=== PATIENT | male | born 1965 | race African-American/Black ===

== ENCOUNTER 2019-12-03 05:21 | Emergency (ER) | payer MEDICAID ==
[~2019-12-03] VITALS: Ht 188 cm; Wt 103.0 kg
[2019-12-03] MEDS ORDERED: TETANUS, DIPHTHERIA, PERTUSSIS VAC/PF 0.5ML (>7YR OLD) IM ONE (06:30)
[2019-12-03] MEDS ORDERED: BACITRACIN 15GM TUBE TOP ONE (06:30)
[2019-12-03 07:07] VITALS: BP 156/97
== END 2019-12-03 07:13 | disposition home or self-care (01) ==
LOC: ER 05:21
DX: S80.812A Abrasion, left lower leg, initial encounter (principal); I87.2 Venous insufficiency (chronic) (peripheral); L29.9 Pruritus, unspecified; X58.XXXA Exposure to other specified factors, initial encounter; Y93.89 Activity, other specified; Y92.89 Other specified places as the place of occurrence of the external cause; Y99.8 Other external cause status; J45.909 Unspecified asthma, uncomplicated; Z88.2 Allergy status to sulfonamides
CPT/HCPCS: 90471; 90715; 99283